=== PATIENT | female | born 1970 | race Caucasian/White ===

== ENCOUNTER 2017-08-04 23:20 | Emergency (ER) | payer OTHER ==
[~2017-08-04] VITALS: Ht 172.7 cm; Wt 61.5 kg
[~2017-08-04 23:20] MED LIST: FERR325T18 PO
[2017-08-04 23:26] VITALS: BP 151/73; PULSE 83; RESP 18; TEMP 97.5; O2SAT 98
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
== END 2017-08-05 01:03 | disposition home or self-care (01) ==
LOC: PHED 23:20
DX: S93.602A Unspecified sprain of left foot, initial encounter (principal); S80.819A Abrasion, unspecified lower leg, initial encounter; V18.2XXA Unspecified pedal cyclist injured in noncollision transport accident in nontraffic accident, initial encounter; Y93.55 Activity, bike riding
CPT/HCPCS: 73630; 99283